=== PATIENT | male | born 1990 | race Hispanic/Latino ===

== ENCOUNTER 2018-04-21 12:52 | Emergency (ER) | payer OTHER ==
[2018-04-21 13:11] VITALS: BP 123/79; PULSE 82; RESP 18; TEMP 98.1
[2018-04-21] MEDS ORDERED: Oxycodone/Acetaminophen 5/325 mg Tab PO STA (13:21)
--- NOTE | 2018-04-21 13:30 | ED PDOC ---
Arrival/HPI - General Chief Complaint: Dental Pain Time Seen by Provider: 04/21/18 13:17 Historian: Patient - History of Present Illness Narrative History of Present Illness (Text): 04/21/18 13:23 27yo male present with complaint of sharp lower right sided molar toothache. The brother states pain started after cracking the tooth last night while playing video game. States he is currently visiting and the earliest dental appointment he could get is on Tuesday. He notes that he took 5tabs of Motrin from last night without relieve. Denies any other complaint. Past Medical History - Provider Review Nursing Documentation Reviewed: Yes - Infectious Disease Hx of Infectious Diseases: None - Psychiatric Hx Substance Use: No Family/Social History - Physician Review Nursing Documentation Reviewed: Yes Family/Social History: Unknown Family HX Smoking Status: Heavy Smoker > 10 Cigarettes Daily Hx Alcohol Use: No Hx Substance Use: No Allergies/Home Meds Allergies/Adverse Reactions: Allergies No Known Allergies Allergy (Verified 04/21/18 13:11) Review of Systems - Physician Review All systems were reviewed & negative as marked: Yes - Review of Systems Constitutional: Normal Eyes: Normal ENT: Other (toothache) Respiratory: Normal Cardiovascular: Normal Gastrointestinal: Normal Genitourinary Male: Normal Musculoskeletal: Normal Skin: Normal Neurological: Normal Endocrine: Normal Hemo/Lymphatic: Normal Psychiatric: Normal Physical Exam Vital Signs Reviewed: Yes Vital Signs Temp Pulse Resp BP Pulse Ox 04/21/18 13:07 98.1 F 82 18 123/79 97 Temperature: Afebrile Blood Pressure: Normal Pulse: Regular Respiratory Rate: Normal Appearance: Positive for: Well-Appearing, Non-Toxic, Comfortable Pain Distress: None Mental Status: Positive for: Alert and Oriented X 3 - Systems Exam Head: Present: Atraumatic, Normocephalic Pupils: Present: PERRL Extroacular Muscles: Present: EOMI Conjunctiva: Present: Normal Mouth: Present: Moist Mucous Membranes. No: Normal Teeth (Partial cracked right 1st lower molar noted with mild gum swelling) Neck: Present: Normal Range of Motion Respiratory/Chest: Present: Clear to Auscultation, Good Air Exchange. No: Respiratory Distress, Accessory Muscle Use Cardiovascular: Present: Regular Rate and Rhythm, Normal S1, S2. No: Murmurs Abdomen: No: Tenderness, Distention, Peritoneal Signs Back: Present: Normal Inspection Upper Extremity: Present: Normal Inspection. No: Cyanosis, Edema Lower Extremity: Present: Normal Inspection. No: Edema Neurological: Present: GCS=15, CN II-XII Intact, Speech Normal Skin: Present: Warm, Dry, Normal Color. No: Rashes Psychiatric: Present: Alert, Oriented x 3, Normal Insight, Normal Concentration Disposition/Present on Arrival - Present on Arrival Any Indicators Present on Arrival: No History of DVT/PE: No History of Uncontrolled Diabetes: No Urinary Catheter: No History of Decub. Ulcer: No History Surgical Site Infection Following: None - Disposition Have Diagnosis and Disposition been Completed?: Yes Diagnosis: Dental caries Disposition: HOME/ ROUTINE Disposition Time: 13:40 Patient Plan: Discharge Condition: STABLE Discharge Instructions (ExitCare): Dental Pain Additional Instructions: Follow up with a Dentist Return to ED for any new or worsening symptoms Prescriptions: Amoxicillin 500 mg PO TID #21 tablet Ibuprofen [Motrin Tab] 600 mg PO Q6 #15 tab traMADol [Ultram] 50 mg PO TID #10 tab Referrals: [facility] [place]] - Follow up with primary
[2018-04-21 13:44] VITALS: O2SAT 100
== END 2018-04-21 13:55 | disposition home or self-care (01) ==
LOC: ED 12:52
DX: K02.9 Dental caries, unspecified (principal); F17.210 Nicotine dependence, cigarettes, uncomplicated
CPT/HCPCS: 96372; 99283; J1885

== ENCOUNTER 2019-03-28 16:54 | Emergency (ER) | payer SELFPAY ==
[2019-03-28 17:11] VITALS: BMI 24.4
[2019-03-28 17:15] VITALS: RESP 18; O2SAT 98
--- NOTE | 2019-03-28 18:17 | ED PDOC ---
Arrival/HPI - General Chief Complaint: Dental Pain Time Seen by Provider: 03/28/19 17:05 Historian: Patient - History of Present Illness Narrative History of Present Illness (Text): 03/28/19 28-year-old male presents today with left lower dental pain. Patient states that he has been having left-sided dental pain for the past few days. Patient states he was seen by the dentist and had the left lower molar filled. Patient states today he bit into his breakfast and states that he broke his tooth. Patient denies trismus or drooling. no fevers or chills. Patient states he has been trying some topical analgesic without improvement. Patient states the dentist did not give him any medications. Past Medical History - Provider Review Nursing Documentation Reviewed: Yes - Travel History Have you recently traveled outside [place] w/in the past 3 mons?: No - Infectious Disease Hx of Infectious Diseases: None - Psychiatric Hx Substance Use: No - Surgical History Other/Comment: dental work - Anesthesia Hx Anesthesia: No - Suicidal Assessment Feels Threatened In Home Enviroment: No Family/Social History - Physician Review Nursing Documentation Reviewed: Yes Family/Social History: Unknown Family HX Smoking Status: Former Smoker Hx Alcohol Use: No Hx Substance Use: No Substance used: marijuana Allergies/Home Meds Allergies/Adverse Reactions: Allergies tramadol Allergy (Verified 03/28/19 17:11) hives Home Medications: Home Meds Medication Instructions Recorded Confirmed Lidocaine Hydrochloride [Lidocaine 5 ml TOP 02/12/19 Hydrochloride Jelly 2% 5 ml] Review of Systems - Review of Systems Constitutional: absent: Fatigue, Fevers ENT: Other (dental pain). absent: Sore Throat, Sinus Congestion Respiratory: absent: SOB, Cough Cardiovascular: absent: Chest Pain, Palpitations Gastrointestinal: absent: Abdominal Pain, Nausea, Vomiting Genitourinary Male: absent: Dysuria, Frequency, Hematuria Musculoskeletal: absent: Back Pain, Neck Pain Neurological: absent: Headache, Dizziness Psychiatric: absent: Anxiety, Depression Physical Exam Vital Signs Reviewed: Yes Vital Signs Temp Pulse Resp Pulse Ox 03/28/19 17:15 99.8 F H 85 18 98 Temperature: Afebrile Blood Pressure: Normal Pulse: Regular Respiratory Rate: Normal Appearance: Positive for: Well-Appearing, Non-Toxic, Comfortable Pain Distress: None Mental Status: Positive for: Alert and Oriented X 3 - Systems Exam Head: Present: Atraumatic Conjunctiva: Present: Normal Ears: Present: Normal, NORMAL TM Mouth: Present: Moist Mucous Membranes, Normal Lips, Normal Tounge. No: Drooling, Trismus, Normal Teeth (multiple dental caries: + ttp over left lower molar; no edema, no erythema; no abscess noted. ) Pharnyx: Present: Normal. No: ERYTHEMA, EXUDATE Neck: Present: Normal Range of Motion, Trachea Midline Respiratory/Chest: Present: Clear to Auscultation, Good Air Exchange. No: Respiratory Distress, Accessory Muscle Use Cardiovascular: Present: Regular Rate and Rhythm, Normal S1, S2. No: Murmurs Upper Extremity: Present: Normal ROM Lower Extremity: Present: Normal ROM Neurological: Present: GCS=15, Speech Normal Skin: Present: Warm, Dry, Normal Color. No: Rashes Psychiatric: Present: Alert, Oriented x 3 Medical Decision Making ED Course and Treatment: 03/28/19 19:09 Patient is nontoxic well-appearing in no distress with stable vital signs No trismus or drooling, moist mucous membranes pt was advised that he must f/u with his dentist. He states he has an appointment on tuesday because [place]. Amoxicillin and Toradol ordered. Per nurse patient refused toradol for pain. the nurse states that when the patient refused the toradol he stated "I know she isn't going to give me anything stronger" All aspects of this case were discussed the attending of record. Impression: Toothache Motrin every 6 hours as needed for pain percocet; 1 tablet every 6 hours as needed for moderate to severe pain; may cause drowsiness. Amoxicillin 1 tablet 3 times daily 10 days Follow-up with the dentist within the next 2 days Follow up with the primary care physician within the next 2 days. Return immediately if symptoms worsen persist or if new concerning symptoms develop [facility] [address] [facility] [phone] [address] [place], [place] [phone] As I went to give the patient the discharge papers; he was not in the room; pt has left without discharge paperwork. - Medication Orders Current Medication Orders: Discontinued Medications Amoxicillin (Amoxil 500 Mg Cap) 500 mg PO STAT STA; Protocol Stop: 03/28/19 17:55 Last Admin: 03/28/19 18:10 Dose: 500 mg Ketorolac Tromethamine (Toradol) 60 mg IM STAT STA Stop: 03/28/19 17:55 Last Admin: 03/28/19 18:11 Dose: Not Given Non-Admin Reason: Patient Refused MAR Pain Assessment Document 03/28/19 18:11 AHUJP (Rec: 03/28/19 18:11 [id number]) Pain Reassessment Is this a pain reassessment? No Sleep Is patient sleeping during reassessment? No Presence of Pain Presence of Pain Yes Disposition/Present on Arrival - Present on Arrival Any Indicators Present on Arrival: No History of DVT/PE: No History of Uncontrolled Diabetes: No Urinary Catheter: No History of Decub. Ulcer: No History Surgical Site Infection Following: None - Disposition Have Diagnosis and Disposition been Completed?: Yes Diagnosis: Toothache, Dental caries Disposition: HOME/ ROUTINE Disposition Time: 18:13 Patient Plan: Discharge Patient Problems: Current Active Problems Problem Status Onset Toothache Acute Dental caries Acute Condition: GOOD Discharge Instructions (ExitCare): Dental Pain (DC) Additional Instructions: Motrin every 6 hours as needed for pain percocet; 1 tablet every 6 hours as needed for moderate to severe pain; may cause drowsiness. Amoxicillin 1 tablet 3 times daily 10 days Follow-up with the dentist within the next 2 days Follow up with the primary care physician within the next 2 days. Return immediately if symptoms worsen persist or if new concerning symptoms develop [facility] [address] [place] [address] [address] [place], [place] [phone] Prescriptions: Amoxicillin 500 mg PO TID #30 tab Ibuprofen [Motrin] 600 mg PO Q6H PRN #20 tab PRN Reason: pain/fever reduction oxyCODONE/Acetaminophen [Percocet 5/325 mg Tab] 1 tab PO Q6H PRN #4 tab PRN Reason: moderate to severe pain Referrals: Jean Chong DMD [Staff Provider] - Follow up with primary Florencio Francis DMD [Non-Staff] - Follow up with primary Forms: [employer] (Japanese), WORK NOTE
[2019-03-29 07:21] VITALS: BP 129/80; PULSE 82; TEMP 98.5
== END 2019-03-28 19:30 | disposition home or self-care (01) ==
LOC: ED 16:54
DX: K02.9 Dental caries, unspecified (principal)